=== PATIENT | female | born 1955 | race Caucasian/White ===

== ENCOUNTER 2019-01-01 16:10 | Inpatient (IN) | payer BC ==
[2019-01-01] MEDS ORDERED: Aspirin 81 MG Tab.Chew PO STA (16:12)
[2019-01-01] MEDS ORDERED: Aspirin 81 MG Tab.Chew PO ONE ×2 (16:13→17:22)
[2019-01-01] MEDS ORDERED: Nitroglycerin 0.4 MG Tab.SL SL PRN (16:20)
[2019-01-01] MEDS ORDERED: Nitroglycerin 2% Oint 1 GM UD Packet TOP ONE (16:30)
[2019-01-01] MEDS ORDERED: Nitroglycerin/D5W 25 MG/250 ML BOTTLE IV STA (16:34)
[2019-01-01] MEDS ORDERED: Acetaminophen Soln 650 MG/20.3 ML UD Cup PO STA (16:36)
[2019-01-01] MEDS ORDERED: fentaNYL 100 MCG/2 ML SDV IVPUSH STA (16:37)
[2019-01-01] MEDS ORDERED: Pantoprazole 40 MG Vial IVPUSH STA (16:39)
[2019-01-01] MEDS ORDERED: Alum Hydroxide/Mag Hydroxide 15 ML, Lidocaine 2% 15 ML PO ONE ×4 (16:41→16:53)
[2019-01-01] MEDS ORDERED: Ondansetron 4 MG/2 ML SDV IVPUSH ONE (16:41)
[2019-01-01] MEDS ORDERED: Ondansetron 4 MG/2 ML SDV ONE (16:42)
[2019-01-01] MEDS ORDERED: Acetaminophen 325 MG Tab ONE (16:42)
[2019-01-01] MEDS: Sodium Chloride 0.9% 1,000 ML IV STA ×2 (17:05→23:40)
[2019-01-01] MEDS ORDERED: Morphine 2 MG/ML Syringe IVPUSH STA (17:12)
[2019-01-01] MEDS ORDERED: Morphine 4 MG/ML Syringe IVPUSH ONE (18:19)
[2019-01-01] MEDS ORDERED: Ketorolac 30 MG/ML SDV IVPUSH ONE (18:42)
[2019-01-01] MEDS ORDERED: Docusate Sodium 100 MG Cap PO PRN (19:36)
[2019-01-01] MEDS ORDERED: Enoxaparin 40 MG/0.4 ML Syringe SUBCUT SCH (19:45)
[2019-01-01] MEDS ORDERED: Acetaminophen 325 MG Tab PO PRN (20:49)
[2019-01-01] MEDS: Morphine 2 MG/ML Syringe IVPUSH PRN ×2 (21:32→23:37)
--- NOTE | 2019-01-02 | EDM.PDOC ---
ED HPI GENERAL MEDICAL PROBLEM - General Chief Complaint: Chest Pain Stated Complaint: SOB Time Seen by Provider: 01/01/19 16:29 Source of Information: Reports: Patient, Family (son) History Limitations: Reports: No Limitations - History of Present Illness INITIAL COMMENTS - FREE TEXT/NARRATIVE: 63 y.o.w.f came with her son to the ed due to acute onset of C/P, SS and epigastric pain with SOB. No diaphoresis. Pt had a similar episode in the distant past, when she was wrongfully Dx'd with a ruptured viscus, underwent a laparoscopy in [place] which which could not confirm the Dx made by imaging. She denied N/V no dizziness, no trauma. Pt lives by herself. Pt rated her C/P at about 10/10. 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 No other acute medical issue. BP 136/ 61 RR 16 Pulse ox 98% on RA Temp 37.0 Pulse 70 Onset Date: 01/01/19 Onset Time: 16:00 Duration: Hour(s): Location: Reports: Chest, Abdomen Quality: Reports: Ache, Burning, Dull, Same as Previous Episode Severity: Moderate Improves with: Reports: Rest Worsens with: Reports: Movement Context: Reports: Other Associated Symptoms: Reports: Chest Pain, Shortness of Breath Treatments APPAREL STOCK CHECKER: Reports: Aspirin - Related Data Allergies Allergy/AdvReac Type Severity Reaction Status Date / Time codeine Allergy Difficulty Verified 01/01/19 17:28 Breathing sumatriptan [From Imitrex] Allergy Chest Verified 01/02/19 06:43 Tightness Home Meds: Home Meds Furosemide 20 mg PO DAILY 07/27/16 [History] Metoprolol Succinate 50 mg PO DAILY 07/27/16 [History] Oxybutynin Chloride [Ditropan Xl] 10 mg PO DAILY 07/27/16 [History] Triamterene/Hydrochlorothiazid [Triamterene-HCTZ 75-50 MG] 1 each PO DAILY 07/27 [History] Venlafaxine [Venlafaxine HCl ER] 150 mg PO DAILY 07/27/16 [History] Escitalopram [Lexapro] 20 mg PO DAILY PRN 01/01/19 [History] Pantoprazole Sodium 40 mg PO DAILY 01/01/19 [History] traMADol [Ultram] 50 mg PO BEDTIME 01/01/19 [History] Past Medical History HEENT History: Reports: Impaired Vision Cardiovascular History: Reports: Hypertension Gastrointestinal History: Reports: GERD Genitourinary History: Reports: Urinary Incontinence Musculoskeletal History: Reports: Arthritis Psychiatric History: Reports: Depression Immunologic History: Reports: Other (See Below) Other Immunologic History: Fibromyalgia - Past Surgical History HEENT Surgical History: Reports: Cataract Surgery GI Surgical History: Reports: Yariel Fundoplication Female Surgical History: Reports: Salpingo-Oophorectomy, Other (See Below) Other Female Surgeries/Procedures: Hysterectomy Social & Family History - Tobacco Use Smoking Status *Q: Former Smoker Used Tobacco, but Quit: Yes Month/Year Tobacco Last Used: 0000 Second Hand Smoke Exposure: No - Caffeine Use Caffeine Use: Reports: None - Recreational Drug Use Recreational Drug Use: No ED ROS GENERAL - Review of Systems Review Of Systems: See Below Constitutional: Reports: No Symptoms HEENT: Reports: No Symptoms Respiratory: Reports: Shortness of Breath Cardiovascular: Reports: Chest Pain Endocrine: Reports: No Symptoms GI/Abdominal: Reports: Abdominal Pain (epigastric) : Reports: No Symptoms Musculoskeletal: Reports: No Symptoms Skin: Reports: No Symptoms Neurological: Reports: No Symptoms Psychiatric: Reports: No Symptoms Hematologic/Lymphatic: Reports: No Symptoms Immunologic: Reports: No Symptoms ED EXAM, GENERAL - Physical Exam Exam: See Below Exam Limited By: No Limitations General Appearance: Alert, WD/WN, Moderate Distress Eye Exam: Bilateral Eye: Normal Inspection Ears: Normal External Exam Ear Exam: Bilateral Ear: Auricle Normal Nose: Normal Inspection, Normal Mucosa, No Blood Throat/Mouth: Normal Inspection, Normal Lips, Normal Voice, No Airway Compromise Head: Atraumatic, Normocephalic Neck: Normal Inspection, Supple, Non-Tender, Full Range of Motion Respiratory/Chest: No Respiratory Distress, Lungs Clear, Normal Breath Sounds, No Accessory Muscle Use, Chest Non-Tender Cardiovascular: Normal Peripheral Pulses, Regular Rate, Rhythm, No Edema, No Gallop, No JVD, No Murmur, No Rub Peripheral Pulses: 2+: Brachial (L) GI/Abdominal: Normal Bowel Sounds, No Organomegaly, No Abnormal Bruit, No Mass, Pelvis Stable, Tender (epigastric tenderness) (Female) Exam: Deferred Rectal (Female) Exam: Deferred Back Exam: Normal Inspection, Full Range of Motion Extremities: Normal Inspection, Normal Range of Motion, Non-Tender, No Pedal Edema Neurological: Alert, Oriented, CN II-XII Intact, Normal Cognition, Normal Gait, No Motor/Sensory Deficits Psychiatric: Normal Affect, Normal Mood Skin Exam: Warm, Dry, Intact, Normal Color, No Rash Lymphatic: No Adenopathy EKG INTERPRETATION EKG Date: 01/01/19 Time: 16:15 Rhythm: NSR Rate (Beats/Min): 91 Shorter: Normal P-Wave: Present QRS: Normal ST-T: Normal QT: Normal Comparison: NA - No Prior EKG Course - Vital Signs Text/Narrative:: 63 y.o.w.f came with her son to the ed due to acute onset of C/P, SS and epigastric pain with SOB. No diaphoresis. Pt had a similar episode in the distant past, when she was wrongfully Dx'd with a ruptured viscus, underwent a laparoscopy in [place] which which could not confirm the Dx made by imaging. She denied N/V no dizziness, no trauma. Pt lives by herself. Pt rated her C/P at about 10/10. 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 No other acute medical issue. BP 136/ 61 RR 16 Pulse ox 98% on RA Temp 37.0 Pulse 70 PE: WNWD W F with C/O SSCP and epigastric pain Imaging: CXR: NAD. CT Head: NAD Labs: CBC, BMP Cardiac Enzymes and D Dimer were all neg. ELTON showed NSR without acute ST/T wave changes Impression: unstable angina vs Atypical chest pain, Nitro H/A Tx: O2 by NA. ASA, NTG, Morphine, GI cocktail Zofran, NS, Fentanyl, Protonix, Tylenol for Nitro H/A Reexam: Pain Improved from 10/10 to 6/10 after all those meds given. Pt lives by herself. Tylenol did not improve H/A due to Nitro given SL. Plan: Admit for OBS on tele to repeat labs in am Addendum: 01/02/2019 5.03 am -pt went into a fib with RVR at about 3.30 am with a rate of 134 bpm -Troponin level was ordered at 4 am and was found to be Nl -Cardizem bolus was ordered at 5.03 am, Rate changed to A-fib with NVR (94-102) -Pt SSCP stayed at 6/10 all night long -Pt was transferred from /S with tele to the ICU unit 5.12 am Consultation: Dr. Currie, Hospitalist, [facility]: No Heparin Bolus , Cardizem, cont observing pt. 6.20 am: A fib with NVR changed temporarily to A fib with RVR, rate 160 bpm, but converted to a rate 98-117 spontaneously. 01/02/2019 8.22 am: ECG: Pt converted to NSR with a rate of 83, NAD, No acute ST/T wave changes. Last Recorded V/S: Last Vital Signs Temp 36.8 C 01/02/19 08:30 Pulse 110 H 01/02/19 06:00 Resp 18 01/02/19 06:00 BP 120/63 01/02/19 08:30 Pulse Ox 99 01/02/19 08:45 - Orders/Labs/Meds Orders: Active Orders 24 hr Category Date Time Status Patient Status [ADT] Routine ADT 01/01/19 19:36 Active Cardiac Monitoring [RC] CONTINUOUS Care 01/01/19 19:39 Active EKG Documentation Completion [RC] ASDIRECTED Care 01/02/19 04:55 Active Oxygen Therapy [RC] PRN Care 01/01/19 19:36 Active Pulse Oximetry [RC] CONTINUOUS Care 01/01/19 19:39 Active Up With Assistance [RC] ASDIRECTED Care 01/01/19 19:36 Active VTE/DVT Education [RC] Per Unit Routine Care 01/01/19 19:36 Active Vital Signs [RC] 08,12,16,20,00,04 Care 01/01/19 19:36 Active CXR [Chest 1V Frontal] [CR] Stat Exams 01/01/19 16:13 Taken Head wo Cont [CT] Stat Exams 01/01/19 17:16 Taken Acetaminophen [Tylenol] Med 01/01/19 20:49 Active 650 mg PO Q4H PRN Docusate Sodium [Colace] Med 01/01/19 19:36 Active 100 mg PO BID PRN Heparin Sodium/0.45% NaCl [Heparin 25,000 Units in 1/2 Med 01/02/19 05:00 Active NS 500 ML] 25,000 units in 500 ml IV TITRATE Morphine Med 01/01/19 20:48 Active 2 mg IVPUSH Q2H PRN Nitroglycerin [Nitrostat] Med 01/01/19 16:20 Active 0.4 mg SL Q5M PRN Nitroglycerin/D5W [Nitroglycerin 25 MG/D5W 250 ML] Med 01/01/19 16:34 Active 25 mg in 250 ml IV TITRATE Resuscitation Status Routine Resus Stat 01/01/19 19:36 Ordered EKG 12 Lead [EK] Routine Ther 01/01/19 16:11 Ordered EKG 12 Lead [EK] Routine Ther 01/02/19 04:54 Ordered Medication Orders Acetaminophen (Tylenol) 650 mg PO Q4H PRN PRN Reason: Pain Last Admin: 01/01/19 21:27 Dose: 650 mg Docusate Sodium (Colace) 100 mg PO BID PRN PRN Reason: Constipation Nitroglycerin/Dextrose (Nitroglycerin 25 Mg/D5w 250 Ml) 25 mg in 250 mls @ 6 mls/hr IV TITRATE STA; Protocol Stop: 01/03/19 10:13 Last Admin: 01/01/19 17:31 Dose: Not Given Heparin Sodium/Sodium Chloride (Heparin 25,000 Units In 1/2 Ns 500 Ml) 25,000 units in 500 mls @ 19.724 mls/hr IV TITRATE JIAN; Protocol Last Admin: 01/02/19 05:05 Dose: 12 units/kg/hr, 19.724 mls/hr Morphine Sulfate (Morphine) 2 mg IVPUSH Q2H PRN PRN Reason: Pain Last Admin: 01/02/19 08:43 Dose: 2 mg Admin: 01/01/19 23:37 Dose: 2 mg Admin: 01/01/19 21:32 Dose: 2 mg Nitroglycerin (Nitrostat) 0.4 mg SL Q5M PRN PRN Reason: Chest Pain Last Admin: 01/01/19 16:29 Dose: 0.4 mg Sodium Chloride (Saline Flush) 10 ml FLUSH ASDIRECTED PRN PRN Reason: Flush Last Admin: 01/02/19 05:18 Dose: 10 ml Admin: 01/02/19 05:12 Dose: 10 ml Labs: Laboratory Tests 01/01/19 01/01/19 01/01/19 Range/Units 16:25 16:25 16:25 WBC 9.0 (4.5-12.0) X10-3/uL RBC 4.57 (3.23-5.20) x10(6)uL Hgb 13.1 (11.5-15.5) g/dL Hct 38.8 (30.0-51.3) % MCV 85.0 (80-96) fL MCH 28.6 (27.7-33.6) pg MCHC 33.7 (32.2-35.4) g/dL RDW 13.0 (11.5-15.5) % Plt Count 333 (125-369) X10(3)uL MPV 8.6 (7.4-10.4) fL Neut % (Auto) 73.8 (46-82) % Lymph % (Auto) 18.4 (13-37) % [place] % (Auto) 5.0 (4-12) % Eos % (Auto) 3 (1.0-5.0) % Baso % (Auto) 0 (0-2) % Neut # (Auto) 6.6 (1.6-8.3) # Lymph # (Auto) 1.7 (0.6-5.0) # [place] # (Auto) 0.5 (0.0-1.3) # Eos # (Auto) 0.2 (0.0-0.8) # Baso # (Auto) 0.0 (0.0-0.2) # PT 9.4 (8.7-11.1) INR 0.97 (0.89-1.13) D-Dimer, Quantitative 0.45 (0.0-0.59) mg/LFEU Sodium 139 (135-145) mmol/L Potassium 3.8 (3.5-5.3) mmol/L Chloride 100 (100-110) mmol/L Carbon Dioxide 27 (21-32) mmol/L BUN 12 (7-18) mg/dL Creatinine 0.8 (0.55-1.02) mg/dL Est Cr Clr Drug Dosing TNP Estimated GFR (MDRD) > 60 (>60) BUN/Creatinine Ratio 15.0 (9-20) Glucose 92 (80-116) mg/dL Calcium 9.3 (8.6-10.2) mg/dL Troponin I (<0.017-0.056) ng/mL Urine Color (YELLOW) Urine Appearance (CLEAR) Urine pH (5.0-6.5) Ur Specific Bennett (1.010-1.025) Urine Protein (NEGATIVE) mg/dL Urine Glucose (UA) (NORMAL) mg/dL Urine Ketones (NEGATIVE) mg/dL Urine Occult Blood (NEGATIVE) Urine Nitrite (NEGATIVE) Urine Bilirubin (NEGATIVE) Urine Urobilinogen (NEGATIVE) mg/dL Ur Leukocyte Esterase (NEGATIVE) Urine RBC (0-5) Urine WBC (0-5) Ur Squamous Epith Cells (NS,R,O) Urine Bacteria (NS) 01/01/19 01/01/19 Range/Units 16:25 21:30 WBC (4.5-12.0) X10-3/uL RBC (3.23-5.20) x10(6)uL Hgb (11.5-15.5) g/dL Hct (30.0-51.3) % MCV (80-96) fL MCH (27.7-33.6) pg MCHC (32.2-35.4) g/dL RDW (11.5-15.5) % Plt Count (125-369) X10(3)uL MPV (7.4-10.4) fL Neut % (Auto) (46-82) % Lymph % (Auto) (13-37) % [place] % (Auto) (4-12) % Eos % (Auto) (1.0-5.0) % Baso % (Auto) (0-2) % Neut # (Auto) (1.6-8.3) # Lymph # (Auto) (0.6-5.0) # [place] # (Auto) (0.0-1.3) # Eos # (Auto) (0.0-0.8) # Baso # (Auto) (0.0-0.2) # PT (8.7-11.1) INR (0.89-1.13) D-Dimer, Quantitative (0.0-0.59) mg/LFEU Sodium (135-145) mmol/L Potassium (3.5-5.3) mmol/L Chloride (100-110) mmol/L Carbon Dioxide (21-32) mmol/L BUN (7-18) mg/dL Creatinine (0.55-1.02) mg/dL Est Cr Clr Drug Dosing Estimated GFR (MDRD) (>60) BUN/Creatinine Ratio (9-20) Glucose (80-116) mg/dL Calcium (8.6-10.2) mg/dL Troponin I < 0.017 L (<0.017-0.056) ng/mL Urine Color Yellow (YELLOW) Urine Appearance Clear (CLEAR) Urine pH 5.0 (5.0-6.5) Ur Specific Bennett 1.015 (1.010-1.025) Urine Protein Negative (NEGATIVE) mg/dL Urine Glucose (UA) Normal (NORMAL) mg/dL Urine Ketones Negative (NEGATIVE) mg/dL Urine Occult Blood Negative (NEGATIVE) Urine Nitrite Negative (NEGATIVE) Urine Bilirubin Negative (NEGATIVE) Urine Urobilinogen 1 H (NEGATIVE) mg/dL Ur Leukocyte Esterase Negative (NEGATIVE) Urine RBC 0-5 (0-5) Urine WBC 0-5 (0-5) Ur Squamous Epith Cells Occasional (NS,R,O) Urine Bacteria Rare H (NS) Meds: Medications Generic Name Dose Route Start Last Admin Trade Name Freq PRN Reason Stop Dose Admin Acetaminophen 650 mg 01/01/19 20:49 01/01/19 21:27 Tylenol PO 650 mg Q4H PRN Administration Pain Docusate Sodium 100 mg 01/01/19 19:36 Colace PO BID PRN Constipation Nitroglycerin/Dextrose 25 mg in 250 mls @ 6 mls/hr 01/01/19 16:34 01/01/19 17 :31 Nitroglycerin 25 Mg/D5w 250 Ml IV 01/03/19 10:13 Not Given TITRATE STA Protocol 10 MCG/MIN Heparin Sodium/Sodium Chloride 25,000 units in 500 mls @ 19.724 mls/hr 05:00 01/02/19 05:05 Heparin 25,000 Units In 1/2 Ns 500 Ml IV 12 units/kg/hr TITRATE JIAN 19.724 mls/hr Administration Protocol 12 UNITS/KG/HR Morphine Sulfate 2 mg 01/01/19 20:48 01/02/19 08:43 Morphine IVPUSH 2 mg Q2H PRN Administration Pain Nitroglycerin 0.4 mg 01/01/19 16:20 01/01/19 16:29 Nitrostat SL 0.4 mg Q5M PRN Administration Chest Pain Sodium Chloride 10 ml 01/02/19 05:19 01/02/19 05:18 Saline Flush FLUSH 10 ml ASDIRECTED PRN Administration Flush Discontinued Medications Generic Name Dose Route Start Last Admin Trade Name Saba PRN Reason Stop Dose Admin Acetaminophen 650 mg 01/01/19 16:36 01/01/19 16:44 Tylenol PO 01/01/19 16:37 650 mg ONETIME STA Administration Acetaminophen Confirm 01/01/19 16:42 01/01/19 17:39 Tylenol Administered 01/01/19 16:43 Not Given Dose 650 mg .ROUTE .STK-MED ONE Aspirin 162 mg 01/01/19 16:12 01/01/19 17:12 Aspirin PO 01/01/19 16:13 Not Given ONETIME STA Aspirin 81 mg 01/01/19 16:13 01/01/19 17:12 Aspirin PO 01/01/19 16:14 Not Given ONETIME ONE Aspirin 324 mg 01/01/19 17:22 01/01/19 16:11 Aspirin PO 01/01/19 17:23 324 mg ONETIME ONE Administration Al Hydroxide/Mg Hydroxide 15 0 ml 01/01/19 16:41 01/01/19 16:56 ml/ Lidocaine HCl 15 ml PO 01/01/19 16:42 30 ml ONETIME ONE Administration Al Hydroxide/Mg Hydroxide 15 0 ml 01/01/19 16:53 01/01/19 17:40 ml/ Lidocaine HCl 15 ml PO 01/01/19 16:54 Not Given ONETIME ONE Diltiazem HCl 20 mg 01/02/19 05:02 01/02/19 05:09 Diltiazem IVPUSH 01/02/19 05:03 20 mg ONETIME ONE Administration Diltiazem HCl 25 mg 01/02/19 06:23 01/02/19 06:57 Diltiazem IVPUSH 01/02/19 06:24 Not Given ONETIME ONE Enoxaparin Sodium 40 mg 01/01/19 19:45 01/01/19 20:24 Lovenox SUBCUT 40 mg Q24H JIAN Administration Fentanyl 50 mcg 01/01/19 16:37 01/01/19 16:47 Sublimaze IVPUSH 01/01/19 16:38 50 mcg ONETIME STA Administration Sodium Chloride 1,000 mls @ 125 mls/hr 01/01/19 16:31 01/01/19 23:40 Normal Saline IV 01/02/19 00:30 125 mls/hr ASDIRECTED STA Administration Ketorolac Tromethamine 30 mg 01/01/19 18:42 01/01/19 18:54 Toradol IVPUSH 01/01/19 18:43 30 mg ONETIME ONE Administration Morphine Sulfate 2 mg 01/01/19 17:12 01/01/19 17:32 Morphine IVPUSH 01/01/19 17:13 2 mg ONETIME STA Administration Morphine Sulfate 4 mg 01/01/19 18:19 01/01/19 19:41 Morphine IVPUSH 01/01/19 18:20 Not Given ONETIME ONE Nitroglycerin 1 gm 01/01/19 16:30 Nitro-Bid 2% TOP 01/01/19 16:31 ONETIME ONE Ondansetron HCl 8 mg 01/01/19 16:41 01/01/19 16:47 Zofran IVPUSH 01/01/19 16:42 8 mg ONETIME ONE Administration Ondansetron HCl Confirm 01/01/19 16:42 01/01/19 17:37 Zofran Administered 01/01/19 16:43 Not Given Dose 8 mg .ROUTE .STK-MED ONE Pantoprazole Sodium 40 mg 01/01/19 16:39 01/01/19 17:00 Protonix Iv IVPUSH 01/01/19 16:40 40 mg ONETIME STA Administration Departure - Departure Time of Disposition: 19:45 Disposition: Admitted As Inpatient 66 Condition: Fair Clinical Impression: Unstable angina - My Orders Last 24 Hours: My Active Orders 01/01/19 16:11 EKG 12 Lead [EK] Routine 01/01/19 16:13 CXR [Chest 1V Frontal] [CR] Stat 01/01/19 16:20 Nitroglycerin [Nitrostat] 0.4 mg SL Q5M PRN 01/01/19 16:34 Nitroglycerin/D5W [Nitroglycerin 25 MG/D5W 250 ML] 25 mg in 250 ml IV TITRATE 01/01/19 17:16 Head wo Cont [CT] Stat 01/01/19 19:36 Patient Status [ADT] Routine Oxygen Therapy [RC] PRN Up With Assistance [RC] ASDIRECTED VTE/DVT Education [RC] Per Unit Routine Vital Signs [RC] 08,12,16,20,00,04 Docusate Sodium [Colace] 100 mg PO BID PRN Resuscitation Status Routine 01/01/19 19:39 Cardiac Monitoring [RC] CONTINUOUS Pulse Oximetry [RC] CONTINUOUS 01/01/19 20:48 Morphine 2 mg IVPUSH Q2H PRN 01/02/19 04:54 EKG 12 Lead [EK] Routine 01/02/19 04:55 EKG Documentation Completion [RC] ASDIRECTED 01/02/19 05:00 Heparin Sodium/0.45% NaCl [Heparin 25,000 Units in 1/2 NS 500 ML] 25,000 units in 500 ml IV TITRATE - Assessment/Plan Last 24 Hours: My Active Orders 01/01/19 16:11 EKG 12 Lead [EK] Routine 01/01/19 16:13 CXR [Chest 1V Frontal] [CR] Stat 01/01/19 16:20 Nitroglycerin [Nitrostat] 0.4 mg SL Q5M PRN 01/01/19 16:34 Nitroglycerin/D5W [Nitroglycerin 25 MG/D5W 250 ML] 25 mg in 250 ml IV TITRATE 01/01/19 17:16 Head wo Cont [CT] Stat 01/01/19 19:36 Patient Status [ADT] Routine Oxygen Therapy [RC] PRN Up With Assistance [RC] ASDIRECTED VTE/DVT Education [RC] Per Unit Routine Vital Signs [RC] 08,12,16,20,00,04 Docusate Sodium [Colace] 100 mg PO BID PRN Resuscitation Status Routine 01/01/19 19:39 Cardiac Monitoring [RC] CONTINUOUS Pulse Oximetry [RC] CONTINUOUS 01/01/19 20:48 Morphine 2 mg IVPUSH Q2H PRN 01/02/19 04:54 EKG 12 Lead [EK] Routine 01/02/19 04:55 EKG Documentation Completion [RC] ASDIRECTED 01/02/19 05:00 Heparin Sodium/0.45% NaCl [Heparin 25,000 Units in 1/2 NS 500 ML] 25,000 units in 500 ml IV TITRATE
[2019-01-02] MEDS ORDERED: Heparin Sodium/0.45% NaCl 25,000 UNITS/500 ML BAG IV SCH (05:00)
[2019-01-02] MEDS ORDERED: Diltiazem 25 MG/5 ML SDV IVPUSH ONE ×2 (05:02→06:23)
[2019-01-02] MEDS: Sodium Chloride 0.9% 10 ML Syringe FLUSH PRN ×3 (05:12→10:00)
[2019-01-02] MEDS: Morphine 2 MG/ML Syringe IVPUSH PRN (08:43)
[2019-01-02] MEDS ORDERED: Pantoprazole 40 MG Tab.CR PO SCH (10:30)
[2019-01-02] MEDS ORDERED: Furosemide 20 MG Tab PO SCH (10:30)
[2019-01-02] MEDS ORDERED: Oxybutynin 5 MG Tab.ER PO SCH (10:45)
[2019-01-02] MEDS ORDERED: Hydrochlorothiazide/Triamterene 50-75 MG Tab PO SCH (10:45)
[2019-01-02] MEDS ORDERED: Metoprolol Succinate 50 MG Tab.ER PO SCH (11:00)
[2019-01-02 13:34] VITALS: BP 144/68
[2019-01-02] MEDS ORDERED: Apixaban 5 MG Tab PO SCH (15:00)
[2019-01-03] MEDS ORDERED: Venlafaxine 150 MG Cap.ER PO SCH (09:00)
[2019-01-03] MEDS ORDERED: Escitalopram 20 MG Tab PO PRN (09:00)
--- NOTE | 2019-01-03 09:19 | HP ---
ADMISSION DATE: 01/02/2019 History is from the patient. She is a good historian. CHIEF COMPLAINT: Neck, chest, abdominal pain with headache. HISTORY OF PRESENT ILLNESS: Ms. Zarate is a 63-year-old woman from [place], [place], with a history of exploratory laparotomy for suspected free air on imaging studies back in March of 2018. No sign of rupture was found. She had had a previous Yariel procedure, and the suspicion was it was related. She went back with similar symptoms that included headache, neck pain radiating down the trapezius to the left shoulder and down the anterior chest, and abdominal discomfort in April of 2018. She was admitted during that episode and re- evaluated, but no surgery was done, but she did have an EGD, which suggested an erosion in the gastric antrum. She was treated with Protonix and told not to discontinue it. The patient states that yesterday morning when she woke up, she was not feeling well with generalized abdominal discomfort and fatigue. She, however, developed increased neck pain that radiated to the left head, causing headache down the left upper thoracic paraspinous area and out the left trapezius. This wrapped around to the left anterior chest area. It hurt when she turned her head and hurt when she took a deep breath. She thought the same thing was coming back that she had operation for, so she came into the emergency room, where she was evaluated by Dr. Ayers and was admitted to observation. The patient feels slightly better now, but she still reports similar symptoms with neck pain and headache. Incidentally noted was, while on the telemetry overnight, she developed rapid atrial fibrillation. She was given a 20 mg bolus of Cardizem IV. She subsequently converted and has not been in it since. She did not recognize that she was having any palpitations or anything abnormal. She is not short of breath. She has not had fever, chills, sweats, or symptoms of recent infection, nausea, vomiting, or diarrhea. She states she has had relatively continuous abdominal discomfort since her exploratory laparotomy procedure. PAST MEDICAL HISTORY: She gives a history of generalized swelling back in the 1980s, which she was told was congestive heart failure. She had an angiogram back then with normal cardiac vessels and has not had it since. She has had lumbar laminectomy with a repeat surgery to remove a broken screw and chronic low back pain. She had the Yariel procedure back in the . She is status post appendectomy, cholecystectomy, C-sections x3. She is 3, para 3. She has had the exploratory laparotomy as mentioned. She has never had blood transfusions, jaundice, or hepatitis. MEDICATIONS: 1. Effexor 150 mg twice daily. 2. Dyazide 50 one daily. 3. Protonix 40 mg daily. 4. Oxybutynin XL 10 mg daily. 5. Metoprolol succinate 50 mg daily. 6. Furosemide 20 mg daily. 7. Lexapro 20 mg daily p.r.n. anxiety. 8. Aspirin 81 mg daily. HABITS: Nonsmoker for the past 39 years. She has a [id number] history since that. Occasional alcohol. No caffeine. ALLERGIES: Codeine and Imitrex both cause chest pain. FAMILY AND SOCIAL HISTORY: The patient's father at age 59 of lymphoma and leukemia. Mother at age 70 of diabetes. She has one brother who is alive at 65 with severe diabetes. The patient has been from her since 2007. She works at [employer] in [place]. She has two sons, both live in the area, one works for [employer] and one for [employer]. The patient lives by herself in [place]. REVIEW OF SYSTEMS: GENERAL: No seizure, syncope, or recent significant weight changes. SKIN: Negative for rash. HEENT: She does report headache. No recent change in hearing or vision. No sore throat or URI. RESPIRATORY: She has had a mild cough for the past couple of days. No palpitations or exertional type chest pain. She, however, does report dyspnea on exertion and often stops going up one flight of stairs because of dyspnea. GASTROINTESTINAL: No nausea, vomiting, diarrhea, constipation, hematochezia, or melena. She does report mild chronic abdominal tenderness since her laparotomy. She is on oxybutynin for mixed incontinence. EXTREMITIES: No ankle edema or leg claudication. PHYSICAL EXAMINATION: GENERAL: She is alert, currently comfortable while lying in bed, and she is a good historian. VITAL SIGNS: Blood pressure 120/63, pulse 82 and regular, respirations 16, temperature 98.2, O2 saturation 99% on room air. SKIN: Anicteric, warm, dry without rash. HEENT: Shows TMs to be clear. Pupils are equal and reactive. Oropharynx is clear. NECK: Supple, but full range of motion testing reproduces her left-sided neck pain radiating to the head and down to the left anterior chest and trapezius. She has tenderness to palpation at the left C4-5 levels, paraspinous area. LUNGS: Clear to the bases. HEART: Regular without murmur, rub, or gallop. Carotids are brisk without bruits. ABDOMEN: She has a healed midline, but slightly retracted surgical scar. She has no organomegaly, guarding, masses. She does have mild generalized tenderness. EXTREMITIES: Show good pulses at the posterior tibials bilaterally. No edema. NEUROLOGIC: Reveals normal mental status. Normal motor exam. ASSESSMENT: 1. Left anterior chest pain, radicular from likely cervical disk irritation. 2. Spontaneous episode of atrial fibrillation, unrecognized by the patient and converted. 3. Significant dyspnea on exertion, likely anginal equivalent. 4. Remote history of exploratory laparotomy for asymptomatic free air seen on x-ray. 5. 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 6. Gastroesophageal reflux disease, status post Yariel procedure. 7. Anxiety and depression. 8. Chronic essential hypertension. 9. Mixed incontinence. PLAN: She has been given a heparin drip on admission. We will discontinue this and start Eliquis this evening. She is to stay on Eliquis 5 mg b.i.d. until Cardiology evaluation, which I will set up for her at [facility] in [place]. She is to continue her other home medications, but use Protonix and not omeprazole for history of gastric erosion, and she is to stay off anti-inflammatory medications, but use Tylenol for her neck discomfort. She will be discharged to home for followup at [facility] for recheck within 2 weeks. /[id number] APRIL/YAL
--- NOTE | 2019-01-03 10:26 | DISCH ---
DISCHARGE DATE: 01/02/2019 PRIMARY FINAL DIAGNOSES: 1. Atypical chest pain secondary to cervical disk herniation. 2. Intermittent atrial fibrillation, incidentally noted. 3. Significant dyspnea on exertion suggestive of cardiac ischemia. 4. Remote history of gastric ulcer. 5. Anxiety and depression. 6. Chronic essential hypertension. OPERATIONS: None. COMPLICATIONS: The patient was admitted for atypical chest pain and was noted to have a spontaneous episode of atrial fibrillation that was unrecognized by the patient and converted with a single dose of IV Cardizem. HOSPITAL COURSE: Ms. Zarate is a 63-year-old woman who underwent abdominal exploratory laparotomy in March of 2018 because of suspected free air on radiologic imaging. At that time, she was having pain in the neck, trapezius, radiating down to the anterior chest and down towards the left shoulder blade. Exploratory laparotomy was negative. She had a previous lap Yariel and no leakage was found. The patient was admitted one month later for similar symptoms and just observed. The patient was admitted because of onset of very similar pain yesterday. This included pain in the left side of her neck, radiating into the left occipital area, down to the left paraspinous area near the shoulder blade and out the left trapezius. This radiated down around the left clavicle as well. She says these symptoms were the same as she got when she had exploratory laparotomy. Review of systems was positive for significant dyspnea on exertion, and she has not had any cardiac workup recently. She was observed after conversion of atrial fibrillation on telemetry monitoring and had no further episodes. She was started on oral Eliquis for stroke prophylaxis and a referral placed to Cardiology at [facility]. She is discharged in good condition to continue medications as follows. DISCHARGE MEDICATIONS: 1. Tramadol 50 mg b.i.d. p.r.n. pain. 2. Eliquis 5 mg b.i.d. 3. Tylenol p.r.n. 4. Venlafaxine 150 mg daily. 5. Pantoprazole 40 mg daily. 6. Metoprolol succinate 50 mg daily. 7. Furosemide 20 mg daily. 8. Lexapro 20 mg daily. FOLLOWUP: She is asked to have a followup with Ene Sinha, her provider at [facility], within 2 weeks. She is to have a followup with Cardiology regarding her episodic atrial fibrillation and her symptoms suggestive of angina. DISCHARGE INSTRUCTIONS: She is to return to the ER should cardiac symptoms worsen. /[id number] APRIL/DENNIS CC: NEE SINHA CNP
== END 2019-01-02 13:55 | disposition home or self-care (01) | DRG 347 ==
LOC: FB.ED 16:10 → FB.MS 19:36 → UNDOADMOB 19:36 → OBSVTOIN 01-02 05:00 → FB.ICU 01-02 05:00
PROVIDERS: ADMIT Family Medicine; ATTEND Family Medicine
DX: M50.20 Other cervical disc displacement, unspecified cervical region (principal); R07.89 Other chest pain; R51 Headache; R10.84 Generalized abdominal pain; I48.0 Paroxysmal atrial fibrillation; F32.9 Major depressive disorder, single episode, unspecified; F41.9 Anxiety disorder, unspecified; I10 Essential (primary) hypertension; R32 Unspecified urinary incontinence; K21.9 Gastro-esophageal reflux disease without esophagitis; R06.00 Dyspnea, unspecified; I25.9 Chronic ischemic heart disease, unspecified; Z87.891 Personal history of nicotine dependence; Z87.11 Personal history of peptic ulcer disease; I20.9 Angina pectoris, unspecified; M79.7 Fibromyalgia; M19.90 Unspecified osteoarthritis, unspecified site; H54.7 Unspecified visual loss; Z90.710 Acquired absence of both cervix and uterus; Z90.79 Acquired absence of other genital organ(s); Z90.722 Acquired absence of ovaries, bilateral; Z90.49 Acquired absence of other specified parts of digestive tract; Z88.5 Allergy status to narcotic agent; Z88.8 Allergy status to other drugs, medicaments and biological substances; M54.5 Low back pain; G89.29 Other chronic pain
CPT/HCPCS: 36415; 70450; 71045; 80048; 81001; 84484; 85025; 85379; 85610; 93005; 96361; 96374; 96375; 99285-25; A9270-GY; C9113; J1644; J1650; J1885; J2270; J2405; J3010; J3490; J7030